=== PATIENT | male | born 1960 | race Caucasian/White ===

== ENCOUNTER 2017-11-13 17:09 | Inpatient (IN) | END 2017-11-19 18:40 | disposition home or self-care (01) | DRG 394 ==

== ENCOUNTER 2017-11-23 01:57 | Observation (INO) | END 2017-11-25 11:05 | disposition home or self-care (01) ==

== ENCOUNTER 2018-04-12 13:19 | Day surgery (SDC) | END 2018-04-12 16:25 | disposition home or self-care (01) ==

== ENCOUNTER 2018-04-18 13:21 | Day surgery (SDC) | END 2018-04-18 17:43 | disposition home or self-care (01) ==

== ENCOUNTER 2018-05-06 20:44 | Emergency (ER) | END 2018-05-07 05:45 | disposition home or self-care (01) ==

== ENCOUNTER 2018-06-14 12:45 | Day surgery (SDC) | END 2018-06-14 18:25 | disposition home or self-care (01) ==

== ENCOUNTER 2018-08-15 12:37 | Day surgery (SDC) | payer BC ==
[~2018-08-15] VITALS: Ht 182.9 cm; Wt 81.6 kg
[~2018-08-15 12:37] MED LIST: FLOMAX; METH10TA2 PO; NEURONTIN; OXYC5CAP17 PO
[2018-08-15] MEDS ORDERED: OMEPRAZOLE (14:53)
[2018-08-15] MEDS ORDERED: GABAPENTIN (14:54)
[2018-08-15] MEDS ORDERED: ATIVAN (14:54)
[2018-08-15] MEDS ORDERED: PEPTO BISMOL (14:55)
[2018-08-15] MEDS ORDERED: PANTOPRAZOLE SODIUM (14:55)
[2018-08-15 15:11] VITALS: BP 120/76; PULSE 59; RESP 27
[2018-08-15 15:18] VITALS: Ht 182.9 cm; Wt 81.6 kg
--- NOTE | 2018-08-15 15:20 | PREAC ---
Date/Time of Note Date/Time of Note DATE: 08/15/18 TIME: 15:19 Anesthesia Eval and Record Evaluation Time Pre-Procedure Interview DATE: 08/15/18 TIME: 15:19 Age 58 Sex male NPO: 8 hrs Preoperative diagnosis HEMATOCHEZIA Planned procedure COLONOSCOPY Past Medical History Past Medical History: Includes GI: GERD, Other (CIRRHOSIS) Infection(s): Hep C Surgery & Anesthesia Issues No known issue Meds Anticoagulation: No Beta Essie within 24 hr: No Reason Beta Essie not given: Pt. not on B-Essie Reported Medications [Pepto Bismol] No Conflict Check 08/15/18 [Pantoprazole Sodium] No Conflict Check 08/15/18 [Ativan] No Conflict Check 08/15/18 [Gabapentin] No Conflict Check 08/15/18 [Omeprazole] No Conflict Check 08/15/18 [Neurontin] No Conflict Check 04/18/18 [Flomax] No Conflict Check 04/18/18 Oxycodone Hcl* (IR) (Oxycodone Hcl*) 5 Mg Capsule, 10 MG PO TID, CAP 11/11/17 Methadone Hcl* (Methadone*) 10 Mg Tab, 10 MG PO TID, TAB 11/11/17 Meds reviewed: Yes Allergies Coded Allergies: No Known Drug Allergies (Unverified Allergy, Unknown, 08/15/18) Allergies Reviewed: Yes Labs/Studies Labs Reviewed: Reviewed by anesthesiologist test: N/A Pre-procedure Exam Airway: Adequate mouth opening, Adequate thyromental dist Mallampati: Mallampati II Teeth: Normal Lung: Normal Heart: Normal ASA Physical Status ASA physical status: 4 Emergency: None Planned Anesthetic General/MAC: MAC Planned Pain Management Parenteral pain med Pre-operative Attestations Prior to commencing anesthesia and surgery, the patient was re-evaluated, there was verification of: *The patient's identity *The results of appropriate recent lab work and preoperative vital signs *The above evaluation not changing prior to induction *Anesthetic plan, risk benefits, alternative and complications discussed with patient/family; questions answered; patient/family understands, accepts and wishes to proceed. Chase Garcia M.D. Aug 15, 2018 15:20
[2018-08-15] MEDS ORDERED: PROPOFOL 40 ML ONE (15:21)
[2018-08-15] MEDS ORDERED: LIDOCAINE 2% (SDV) 5 ML INJ ONE (15:21)
[2018-08-15] MEDS ORDERED: ALBUTEROL 0.083% (NEB) 2.5 MG/3 ML AMP HHN PRN (15:30)
[2018-08-15] MEDS ORDERED: FENTAnyl 50 MCG/ML VIAL IV PRN ×3 (15:30)
[2018-08-15] MEDS ORDERED: OXYCODONE/ACETAMINOPHEN (5/325) TAB PO PRN ×2 (15:30)
[2018-08-15] MEDS ORDERED: hydrALAzine 20 MG INJ IV PRN (15:30)
[2018-08-15] MEDS ORDERED: DIPHENHYDRAMINE 50 MG INJ IV PRN (15:30)
[2018-08-15] MEDS ORDERED: MEPERIDINE 25 MG INJ IV PRN (15:30)
[2018-08-15] MEDS ORDERED: ONDANSETRON 4 MG INJ IV PRN (15:30)
[2018-08-15] MEDS ORDERED: TRIMETHOBENZAMIDE 100 MG/ML VIAL IM PRN (15:30)
[2018-08-15] MEDS ORDERED: MIDAZOLAM 1 MG/ML 2 ML INJ IV PRN (15:30)
[2018-08-15] MEDS ORDERED: HYDROmorphONE 1 MG/5 ML IV SYRINGE IV PRN ×3 (15:30)
[2018-08-15] MEDS ORDERED: EPHEDrine SULFATE 50 MG/5 ML SYG IV PRN (15:30)
[2018-08-15] MEDS ORDERED: IPRATROPIUM (NEB) 0.5 MG/2.5 ML AMP HHN PRN (15:30)
[2018-08-15] MEDS ORDERED: LABETALOL HCL 20MG INJ IV PRN (15:30)
--- NOTE | 2018-08-15 15:42 | PAC ---
Date/Time of Note Date/Time of Note DATE: 08/15/18 TIME: 15:42 Post-Anesthesia Notes Post-Anesthesia Note Last documented vital signs Vital Signs Date Temp Pulse Resp B/P (MAP) Pulse Ox O2 O2 Flow FiO2 Time Delivery Rate 08/15/18 98.9 59 27 120/76 99 Room Air 15:42 (91) Activity: WNL Respiratory function: WNL Cardiovascular function: WNL Mental status: Baseline Pain reasonably controlled: Yes Hydration appropriate: Yes Nausea/Vomiting absent: Yes Chase Garcia M.D. Aug 15, 2018 15:42
--- NOTE | 2018-08-15 15:49 | HPN ---
Date/Time of Note Date/Time of Note DATE: 08/15/18 TIME: 15:49 Interval H&P Admission Note Pt. seen H&P reviewed: No system changes CHRISTINA SEALS Aug 15, 2018 15:49
[2018-08-15 16:16] VITALS: BP 112/66; RESP 14
== END 2018-08-15 17:11 | disposition home or self-care (01) ==
LOC: GIL 12:37
PROVIDERS: ATTEND Internal Medicine Gastroenterology
DX: K64.8 Other hemorrhoids (principal)
CPT/HCPCS: 45378; Z7610

== ENCOUNTER → 2019-01-23 | Outpatient (CLI) | payer BC ==
[~2019-01-23] MED LIST changes: +ATIVAN; +GABAPENTIN; +OMEPRAZOLE; +PANTOPRAZOLE SODIUM; +PEPTO BISMOL
== END | disposition home or self-care (01) ==
LOC: EKG 14:54
PROVIDERS: ATTEND Pain Medicine Interventional Pain Medicine
DX: Z02.83 Encounter for blood-alcohol and blood-drug test (principal)
CPT/HCPCS: 93005

== ENCOUNTER 2019-04-25 06:58 | Day surgery (SDC) | payer BC ==
[~2019-04-25] VITALS: Ht 182.9 cm; Wt 90.5 kg
[2019-04-25] VITALS (15 sets, daily range): BP systolic 105–174; BP diastolic 58–81; PULSE 52–122; RESP 12–20; Ht 182.9 cm; Wt 90.5 kg
[~2019-04-25 06:58] MED LIST changes: +GABA400C14 ORAL; +SOFO1TAB2 ORAL
[2019-04-25] MEDS ORDERED: CEFAZOLIN 2 GM/50 ML (PMX) 50 ML IVPB SCH (10:00)
[2019-04-25] MEDS ORDERED: DEXTROSE 5% 1,000 ML IV SCH (11:00)
[2019-04-25] MEDS ORDERED: hydrALAzine 20 MG INJ IV PRN (12:00)
[2019-04-25] MEDS ORDERED: DIPHENHYDRAMINE 50 MG INJ IV PRN (12:00)
[2019-04-25] MEDS ORDERED: KETOROLAC 30 MG INJ IV PRN (12:00)
[2019-04-25] MEDS ORDERED: OXYCODONE/ACETAMINOPHEN (5/325) TAB PO PRN ×2 (12:00)
[2019-04-25] MEDS ORDERED: ONDANSETRON 4 MG INJ IV PRN (12:00)
[2019-04-25] MEDS ORDERED: FENTAnyl 50 MCG/ML VIAL IV PRN ×3 (12:00)
[2019-04-25] MEDS ORDERED: LABETALOL HCL 20MG INJ IV PRN (12:00)
[2019-04-25] MEDS ORDERED: MEPERIDINE 25 MG INJ IV PRN (12:00)
[2019-04-25] MEDS ORDERED: HYDROmorphONE 1 MG/5 ML IV SYRINGE IV PRN ×3 (12:00)
[2019-04-25] MEDS ORDERED: CEFAZOLIN 1 GM INJ ONE (12:05)
[2019-04-25] MEDS ORDERED: PROPOFOL 20 ML ONE (12:05)
[2019-04-25] MEDS ORDERED: FENTAnyl 50 MCG/ML VIAL ONE (12:05)
[2019-04-25] MEDS ORDERED: ONDANSETRON 4 MG INJ ONE (12:06)
[2019-04-25] MEDS ORDERED: LIDOCAINE 2% 20 ML UROJET SYRINGE ONE (12:09)
[2019-04-25] MEDS ORDERED: TRIAMCINOLONE ACET 40 MG/ML INJ ONE ×2 (12:10→13:11)
[2019-04-25] MEDS ORDERED: EPHEDrine 25 MG/5 ML SYG ONE ×2 (12:33→12:34)
== END 2019-04-25 15:37 | disposition home or self-care (01) ==
LOC: SDS 06:58
PROVIDERS: ATTEND Surgery Surgical Oncology
DX: N32.0 Bladder-neck obstruction (principal); N35.919 Unspecified urethral stricture, male, unspecified site
CPT/HCPCS: 52276; 52283; J0690; J2405; J3010; J7070; Z7512; Z7610